=== PATIENT | male | born 1960 | race Caucasian/White ===

== ENCOUNTER 2017-11-15 17:14 | Inpatient (IN) | payer OTHER ==
[~2017-11-15] VITALS: Ht 177.8 cm; Wt 106.6 kg
--- NOTE | ~2017-11-15 | PROC ---
[facility] [address] [place] [address] PROCEDURE REPORT Name: JAMIE MONET Room: [address] IN .R.#: [id number] Admission: 11/15/17 Attend Phys: Vivi Tracey MD Discharge: Date of : 60 Report #: [id number] THIS REPORT FOR: //name// For GI report, please see the Provation report in Peceptive 7 content. By: [address] [place], [place] [address]cal Records Staff [facility] /STEFANO
[2017-11-15 17:27] VITALS: BP 125/81
[2017-11-15] MEDS ORDERED: HYDROCHLOROTH12.5 M1 PO (17:32)
[2017-11-15] MEDS ORDERED: LISINOPRIL20 MG PO (17:32)
[2017-11-15] MEDS ORDERED: MOBIC15 MG PO (17:32)
[2017-11-15] MEDS ORDERED: METHOTREXATE 22.5 MG PO (17:32)
[2017-11-15] MEDS ORDERED: NEURONTIN 300300 M1 PO (17:33)
[2017-11-15] MEDS ORDERED: GLUCOPHAGE XR500 MG PO (17:33)
[2017-11-15] MEDS ORDERED: FLEXERIL PO (17:33)
[2017-11-15] MEDS ORDERED: PROTONIX40 M1 PO (17:33)
[2017-11-15] MEDS ORDERED: NOVOLOG100 UNIT/1 SUBQ (17:34)
[2017-11-15] MEDS ORDERED: HYDROCODON-ACE1 EAC5 PO (17:34)
[2017-11-15] MEDS ORDERED: SIMVASTATIN40 MG PO (17:34)
[2017-11-15] MEDS ORDERED: LOPRESSOR50 PO (17:35)
[2017-11-15] MEDS ORDERED: PRESERVISION T1 EACH PO (17:35)
[2017-11-15] MEDS ORDERED: LANTUS100 UNIT/M SUBQ (17:35)
[2017-11-15] MEDS ORDERED: POTASSIUM20 PO (17:36)
[2017-11-15] MEDS ORDERED: HUMALOG100 UNIT/1 SUBQ (17:36)
[2017-11-15 18:38] LABS: HEMOGLOBIN 11.6 gm/dL (14.0-18.0); MPV 11.2 fl. (7.2-11.1); NUCLEATED RBCS 0 /100WBC
[2017-11-15 18:39] LABS: HEMATOCRIT 33.3 % (42.0-52.0); MCH 32.3 pg (26.0-34.0); MCHC 34.9 g/dL (28.0-37.0); MCV 92.6 fL (80.0-100.0); PLATELET COUNT* 252 thou/uL (150-400); RDW-CV 16.9 % (10.5-14.5); WBC 10.8 thou/uL (4.0-11.0)
[2017-11-15 18:44] LABS: URINE BLOOD TRACE (Negative); URINE CLARITY CLEAR; URINE COLOR DARK YELLOW; URINE GLUCOSE-RANDOM 1+ (Negative); URINE KETONES TRACE (Negative); URINE LEUKOCYTES-REFLEX 1+ (Negative); URINE NITRITE-REFLEX NEGATIVE (Negative); URINE PROTEIN 1+ (Negative); URINE SPECIFIC GRAVITY 1.025 (1.005-1.030)
[2017-11-15 18:44] LABS: CALCIUM 7.8 mg/dL (8.5-10.1); CREATININE 1.1 mg/dL (0.6-1.3); INR 1.2; POTASSIUM 3.4 mmol/L (3.5-5.1); PROTIME 11.6 Seconds (9.20-11.50)
[2017-11-15 18:51] LABS: MUCUS 0-3 Light strn/LPF (None Seen); SQUAMOUS 4-10 Moderate /LPF (0-3)
[2017-11-15 18:52] LABS: AMORPHOUS URATES Few /LPF (None Seen); BACTERIA-REFLEX 1-9 Few /HPF (None Seen); HYALINE CASTS 0-3 Few /LPF (None Seen); URINE RBC 0-2 Rare /HPF (0-2); URINE WBC-REFLEX 0-5 Rare /HPF (0-5)
[2017-11-15 18:53] LABS: URINE BILIRUBIN 3+ (Negative)
[2017-11-15 18:54] LABS: TOTAL BILIRUBIN 14.6 mg/dL (<0.1-1.0); TOTAL PROTEIN 6.7 g/dL (6.4-8.2)
[2017-11-15 19:06] LABS: ABSOLUTE BASOPHILS 0.2 thou/uL (0.0-0.2); ABSOLUTE EOSINOPHILS 0.2 thou/uL (0.0-0.7); ABSOLUTE LYMPHOCYTES 1.7 thou/uL (0.8-5.3); ABSOLUTE MONOCYTES 0.2 thou/uL (0.0-1.2); ABSOLUTE NEUTROPHILS 8.4 thou/uL (1.6-8.1); ATYPICAL LYMPHS 1 %
[2017-11-15 19:07] LABS: GIANT PLATELETS OCCASIONAL; PLATELET ESTIMATE ADEQUATE
[2017-11-15 21:58] VITALS: BP 131/81
[2017-11-16 07:20] LABS: HEMOGLOBIN 10.6 gm/dL (14.0-18.0); NUCLEATED RBCS 0 /100WBC; PLATELET COUNT* 218 thou/uL (150-400); RBC 3.36 mil/uL (4.50-6.00)
[2017-11-16 07:22] LABS: HEMATOCRIT 31.4 % (42.0-52.0); MCH 31.6 pg (26.0-34.0); MCHC 33.9 g/dL (28.0-37.0); MCV 93.4 fL (80.0-100.0); RDW-CV 16.6 % (10.5-14.5)
[2017-11-16 07:24] LABS: ALBUMIN 1.9 g/dL (3.4-5.0); CREATININE 0.9 mg/dL (0.6-1.3); POTASSIUM 3.8 mmol/L (3.5-5.1); TOTAL BILIRUBIN 13.2 mg/dL (<0.1-1.0); TOTAL PROTEIN 5.4 g/dL (6.4-8.2)
[2017-11-16 08:35] LABS: ABSOLUTE BASOPHILS 0.1 thou/uL (0.0-0.2); ABSOLUTE EOSINOPHILS 0.2 thou/uL (0.0-0.7); ABSOLUTE LYMPHOCYTES 1.1 thou/uL (0.8-5.3); ABSOLUTE MONOCYTES 0.1 thou/uL (0.0-1.2); ABSOLUTE NEUTROPHILS 7.6 thou/uL (1.6-8.1); PLATELET ESTIMATE ADEQUATE
[2017-11-16 08:36] LABS: ANISOCYTOSIS 1+; TARGET CELLS Occasional
[2017-11-16 08:45] VITALS: BP 135/71
[2017-11-16 15:32] VITALS: BP 127/77
[2017-11-16 20:00] VITALS: BP 117/72
[2017-11-17 03:47] VITALS: BP 117/71
[2017-11-17 03:48] LABS: HEMATOCRIT 29.4 % (42.0-52.0); HEMOGLOBIN 10.2 gm/dL (14.0-18.0); MCHC 34.8 g/dL (28.0-37.0); MPV 11.5 fl. (7.2-11.1); RBC 3.2 mil/uL (4.50-6.00); RDW-CV 17.2 % (10.5-14.5); WBC 9.8 thou/uL (4.0-11.0)
[2017-11-17 04:08] LABS: ALBUMIN 1.7 g/dL (3.4-5.0); CALCIUM 7.2 mg/dL (8.5-10.1); CREATININE 0.8 mg/dL (0.6-1.3); POTASSIUM 3.4 mmol/L (3.5-5.1); TOTAL BILIRUBIN 12.5 mg/dL (<0.1-1.0); TOTAL PROTEIN 5.8 g/dL (6.4-8.2)
[2017-11-17 04:36] LABS: MAGNESIUM 0.7 mg/dL (1.8-2.4)
[2017-11-17 15:52] VITALS: BP 115/69
[2017-11-17 20:00] VITALS: BP 129/78
[2017-11-17 23:45] VITALS: BP 123/70
[2017-11-18 03:57] LABS: HEMATOCRIT 31.1 % (42.0-52.0); HEMOGLOBIN 10.4 gm/dL (14.0-18.0); MCH 31.4 pg (26.0-34.0); MCHC 33.5 g/dL (28.0-37.0); MCV 93.5 fL (80.0-100.0); MPV 10.7 fl. (7.2-11.1); RBC 3.33 mil/uL (4.50-6.00); RDW-CV 17.1 % (10.5-14.5); WBC 11.4 thou/uL (4.0-11.0)
[2017-11-18 04:13] LABS: ALBUMIN 1.8 g/dL (3.4-5.0); CALCIUM 7.3 mg/dL (8.5-10.1); CREATININE 0.9 mg/dL (0.6-1.3); POTASSIUM 3.5 mmol/L (3.5-5.1); TOTAL BILIRUBIN 13.5 mg/dL (<0.1-1.0)
[2017-11-18 07:50] VITALS: BP 118/72
[2017-11-18 16:00] VITALS: BP 120/70
[2017-11-18 21:05] VITALS: BP 110/66
[2017-11-19 00:15] VITALS: BP 115/74
[2017-11-19 04:19] LABS: HEMATOCRIT 29.6 % (42.0-52.0); MCH 31.7 pg (26.0-34.0); MCV 93.3 fL (80.0-100.0); MPV 10.8 fl. (7.2-11.1); RBC 3.17 mil/uL (4.50-6.00)
[2017-11-19 04:34] LABS: ALBUMIN 1.7 g/dL (3.4-5.0); CREATININE 0.9 mg/dL (0.6-1.3); POTASSIUM 3.8 mmol/L (3.5-5.1); TOTAL BILIRUBIN 12.4 mg/dL (<0.1-1.0); TOTAL PROTEIN 5.9 g/dL (6.4-8.2)
[2017-11-19 07:06] LABS: HEPATITIS B SURFACE AG Negative (Negative)
[2017-11-19 07:06] LABS: HEPATITIS B SURFACE AG Negative (Negative)
[2017-11-19 08:30] VITALS: BP 121/62
[2017-11-19 10:31] VITALS: BP 121/62
[2017-11-19 11:33] VITALS: BP 121/62
[2017-11-19 14:25] VITALS: BP 116/80
[2017-11-19 20:40] VITALS: BP 134/86
[2017-11-20] VITALS (21 sets, daily range): BP systolic 101–177; BP diastolic 57–92
[2017-11-20] MEDS ORDERED: PROPRANOLOL 1010 MG PO (08:11)
--- NOTE | 2017-11-22 13:09 | CON ---
[address] [address] CONSULTATION Name: TIERNEYEDINSONJAMIE Ronaldo Room: [address] IN .R.#: [id number] Admission: 11/15/17 Attend Phys: Vivi Tracey MD Discharge: 11/20/17 Date of : 60 Report #: [id number] THIS REPORT FOR: //name// CC: Vivi Boo DATE OF SERVICE: 11/16/2017 REASON FOR CONSULT: Elevated liver enzymes and hyperbilirubinemia. HISTORY OF PRESENT ILLNESS: This is a 57-year-old male with a 6-day history of jaundice, who also complains of weakness, abdominal pain and poor appetite. The patient denies ever having any history of liver disease in the past. He has had upper and lower endoscopy 6 years ago, which were unrevealing. He reports that his stool is usually loose, but denies any hematochezia or melena. PAST MEDICAL HISTORY: Significant for a history of hypertension, diabetes, gastroesophageal reflux disease, hyperlipidemia, chronic neck pain, rheumatoid arthritis and neuropathy. ALLERGIES: SIGNIFICANT TO MORPHINE. MEDICATIONS: Please refer to MAR. SOCIAL HISTORY: The patient is , obese. Smokes a pack of cigarettes per day. Denies alcohol use on regular basis. PHYSICAL EXAMINATION: VITAL SIGNS: Reveals blood pressure of 131/81, respirations 16, pulse 90 and temperature 98.1. LUNGS: Clear to auscultation. CARDIOVASCULAR: Regular. LUNGS: Clear. ABDOMEN: Soft, mildly distended. Bowel sounds are positive. NEUROLOGIC: Alert and oriented x 3. LABORATORY DATA: Labs reveal sodium of 137, potassium 3.8, BUN is 19, creatinine 0.9 and glucose 101. AST is 120, ALT 92, alkaline phosphatase 781 and total bilirubin is 13.2. Lipase 126. INR is 1.2 with WBC of 9.0 and hemoglobin of 10.6 with platelet of 218,000. IMAGING: CT of abdomen and pelvis and ultrasound were both obtained on admission. CT is suggestive of nodular liver contour, which may signify cirrhosis. There is also trace ascites without splenomegaly. There is a 1.6-cm low-attenuation lesion in the right hepatic lobe. Ultrasound confirms the finding in the CT. There are gallstones noted. The [place] [address] CONSULTATION Name: JAMIE MONET Room: [address]#: [id number] Admission: 11/15/17 Attend Phys: Vivi Tracey MD Discharge: 11/20/17 Date of : 60 Report #: [id number] 3.4 mm. ASSESSMENT AND PLAN: The patient with abdominal pain, elevated liver enzymes and hyperbilirubinemia. He does not have coagulopathy or thrombocytopenia, which are usually associated with cirrhosis, but his AST-ALT ratio hints cirrhotic liver. Imaging also confirms cirrhosis. MRI of the abdomen is ordered, so we will follow up with this results. We also have ordered serology, which includes viral hepatitis serology and autoimmune serology. We will make further recommendation once these are available. <ELECTRONICALLY SIGNED> By: Kavya Cruz MD 11/22/17 1309 1034 1310Kavya Cruz MD /nt
== END 2017-11-20 18:00 | disposition home or self-care (01) | DRG 441 ==
LOC: M.ERS 17:14 → M.TBA-ER 21:14 → M.ORTHSURG 21:14
PROVIDERS: Emergency Medicine Emergency Medical Services; Nurse Practitioner Family; ADMIT Internal Medicine
PROC: 0DJ08ZZ Inspection of Upper Intestinal Tract, Via Natural or Artificial Opening Endoscopic (ICD-10-PCS; principal; 2017-11-19)
PROC: 0FB13ZX Excision of Right Lobe Liver, Percutaneous Approach, Diagnostic (ICD-10-PCS; 2017-11-20)
DX: K72.00 Acute and subacute hepatic failure without coma (principal); R65.11 Systemic inflammatory response syndrome (SIRS) of non-infectious origin with acute organ dysfunction; E44.0 Moderate protein-calorie malnutrition; K76.6 Portal hypertension; I85.10 Secondary esophageal varices without bleeding; K44.9 Diaphragmatic hernia without obstruction or gangrene; K31.89 Other diseases of stomach and duodenum; K76.9 Liver disease, unspecified; E11.9 Type 2 diabetes mellitus without complications; F17.210 Nicotine dependence, cigarettes, uncomplicated; M06.9 Rheumatoid arthritis, unspecified; I10 Essential (primary) hypertension; G62.9 Polyneuropathy, unspecified; K21.9 Gastro-esophageal reflux disease without esophagitis; E66.01 Morbid (severe) obesity due to excess calories; E78.00 Pure hypercholesterolemia, unspecified; Z68.33 Body mass index [BMI] 33.0-33.9, adult; Z79.4 Long term (current) use of insulin; Z79.84 Long term (current) use of oral hypoglycemic drugs; Z79.899 Other long term (current) drug therapy; Z88.5 Allergy status to narcotic agent

== ENCOUNTER → 2017-12-30 | Outpatient (CLI) | payer OTHER ==
[~2017-12-30] MED LIST: ALDACTONE50 MG PO; BRILINTA90 MG PO; CLONIDINE0.1 PO; CONSTULOSE10 GM/152 PO; FLEXERIL PO; GLUCOPHAGE XR500 MG PO; HUMALOG100 UNIT/1 SUBQ; HYDROCHLOROTH12.5 M1 PO; HYDROCODON-ACE1 EAC5 PO; LANTUS100 UNIT/M SUBQ; LASIX 40 MG TAB40 M2 PO; LISINOPRIL20 MG PO; LOPRESSOR50 PO; METHOTREXATE 22.5 MG PO; MIDODRINE HCL 55 M1 PO; MOBIC15 MG PO; NEURONTIN 300300 M1 PO; NOVOLOG100 UNIT/1 SUBQ; ONDANSETRON HCL4 M2 PO; OXYCONTIN10 M1 PO; POTASSIUM20 PO; PRESERVISION T1 EACH PO; PROPRANOLOL 1010 MG PO; PROTONIX40 M1 PO; SIMVASTATIN40 MG PO
== END | disposition home or self-care (01) ==
LOC: M.ULTRA 12:45
DX: R18.8 Other ascites (principal); K72.90 Hepatic failure, unspecified without coma; I10 Essential (primary) hypertension; E11.9 Type 2 diabetes mellitus without complications; M06.9 Rheumatoid arthritis, unspecified; K21.9 Gastro-esophageal reflux disease without esophagitis; E78.00 Pure hypercholesterolemia, unspecified; F17.210 Nicotine dependence, cigarettes, uncomplicated; Z79.4 Long term (current) use of insulin; Z79.899 Other long term (current) drug therapy; Z88.8 Allergy status to other drugs, medicaments and biological substances; Z98.890 Other specified postprocedural states

== ENCOUNTER 2018-04-18 20:08 | Inpatient (IN) | payer OTHER ==
[~2018-04-18] VITALS: Ht 177.8 cm; Wt 105.7 kg
[~2018-04-18 20:08] MED LIST changes: -ALDACTONE50 MG PO; -BRILINTA90 MG PO; -CLONIDINE0.1 PO; -CONSTULOSE10 GM/152 PO; -LASIX 40 MG TAB40 M2 PO; -MIDODRINE HCL 55 M1 PO; -ONDANSETRON HCL4 M2 PO; -OXYCONTIN10 M1 PO
[2018-04-18 20:17] VITALS: BP 114/63
[2018-04-18] MEDS ORDERED: LASIX 40 MG TAB40 M2 PO (20:26)
[2018-04-18] MEDS ORDERED: CONSTULOSE10 GM/152 PO (20:28)
[2018-04-18] MEDS ORDERED: ALDACTONE50 MG PO (20:28)
[2018-04-18] MEDS ORDERED: ONDANSETRON HCL4 M2 PO (20:29)
[2018-04-18] MEDS ORDERED: CLONIDINE0.1 PO (20:29)
[2018-04-18] MEDS ORDERED: OXYCONTIN10 M1 PO (20:29)
[2018-04-18] MEDS ORDERED: PROTONIX40 M1 PO (20:30)
[2018-04-18 20:46] LABS: HEMATOCRIT 27.4 % (42.0-52.0); HEMOGLOBIN 8.6 gm/dL (14.0-18.0); MCH 25.1 pg (26.0-34.0); MCHC 31.5 g/dL (28.0-37.0); MCV 79.7 fL (80.0-100.0); MPV 8.4 fl. (7.2-11.1); NUCLEATED RBCS 0 /100WBC; PLATELET COUNT* 334 thou/uL (150-400); RBC 3.44 mil/uL (4.50-6.00); RDW-CV 19.9 % (10.5-14.5); WBC 9.4 thou/uL (4.0-11.0)
[2018-04-18 20:52] LABS: INR 1.1; PROTIME 11.4 Seconds (9.20-11.50)
[2018-04-18 21:02] LABS: ABSOLUTE BASOPHILS 0.3 thou/uL (0.0-0.2); ABSOLUTE EOSINOPHILS 0.1 thou/uL (0.0-0.7); ABSOLUTE LYMPHOCYTES 0.8 thou/uL (0.8-5.3); ABSOLUTE MONOCYTES 0.3 thou/uL (0.0-1.2); PLATELET ESTIMATE ADEQUATE
[2018-04-18 21:03] LABS: ANISOCYTOSIS 1+; HYPOCHROMASIA 1+; MICROCYTES 1+
[2018-04-18 21:08] LABS: ICTOTEST (BILI CONFIRMATORY) Negative (Negative); URINE BILIRUBIN 1+ (Negative); URINE BLOOD NEGATIVE (Negative); URINE CLARITY CLEAR; URINE COLOR DARK YELLOW; URINE GLUCOSE-RANDOM 1+ (Negative); URINE KETONES NEGATIVE (Negative); URINE LEUKOCYTES-REFLEX NEGATIVE (Negative); URINE NITRITE-REFLEX NEGATIVE (Negative); URINE PROTEIN TRACE (Negative); URINE SPECIFIC GRAVITY >= 1.030 (1.005-1.030)
[2018-04-18 21:20] LABS: CALCIUM 8.6 mg/dL (8.5-10.1); CREATININE 1.1 mg/dL (0.6-1.3); POTASSIUM 3.8 mmol/L (3.5-5.1)
[2018-04-18 21:31] LABS: ALBUMIN 2.4 g/dL (3.4-5.0); TOTAL BILIRUBIN 0.8 mg/dL (<0.1-1.0); TOTAL PROTEIN 6.5 g/dL (6.4-8.2)
[2018-04-18 21:33] LABS: TROPONIN-I LEVEL 21.16 ng/mL (<0.06)
[2018-04-19] VITALS (55 sets, daily range): BP systolic 74–125; BP diastolic 42–83
--- NOTE | 2018-04-19 02:29 | NUR ---
PT ADMITTED TO ROOM 4 FROM ER. PT MOVED SELF TO HOSPITAL BED. MONITORS APPLIED, SCDS APPLIED. HISTORY OBTAINED. VSS, NO ACUTE DISTRESS NOTED. PT NOTED TO HAVE LABORED RESP AND DISTENDED FIRM ABD. EDEMA NOTED IN FEET AND LEGS 2+. PT ORIENTED TO ROOM, CALL SYSTEM TV AND BED CONTROLS. PT VERBALIZED GOOD UNDERSTANDING. IN FOR BRIEF VISIT. VISITATION POLICY WENT OVER WITH AND PT. BECAME ANGRY SHE WANTED TO SLEEP IN HIS ROOM WHILE HE WAS HERE. DID RETURN TO WAITING ROOM AFTER EXPLAINING VISITATION AGAIN. PT DOES NOT WANT PAIN MEDS AT THIS TIME, INSTRUCTED TO LET ME KNOW WHEN HE NEEDED MEDICATION AND PT VEBALIZED UNDERSTANDING.O2 2L BNC INTACT.
[2018-04-19 04:31] LABS: HEMATOCRIT 26.8 % (42.0-52.0); HEMOGLOBIN 8.4 gm/dL (14.0-18.0); MCH 24.6 pg (26.0-34.0); MCHC 31.4 g/dL (28.0-37.0); MCV 78.6 fL (80.0-100.0); MPV 8.5 fl. (7.2-11.1); RBC 3.41 mil/uL (4.50-6.00); RDW-CV 19.9 % (10.5-14.5); WBC 10.4 thou/uL (4.0-11.0)
[2018-04-19 06:10] LABS: ALBUMIN 2.2 g/dL (3.4-5.0); CALCIUM 8.2 mg/dL (8.5-10.1); CREATININE 1.1 mg/dL (0.6-1.3); POTASSIUM 3.7 mmol/L (3.5-5.1); TOTAL BILIRUBIN 0.7 mg/dL (<0.1-1.0); TOTAL PROTEIN 5.9 g/dL (6.4-8.2)
--- NOTE | 2018-04-19 11:54 | NUR ---
PATIENT GETTING PARACENTESIS AT THIS TIME AT THE BEDSIDE.
--- NOTE | 2018-04-19 11:55 | EKG ---
[place] [address] ELECTROCARDIOGRAM REPORT Name: JAMIE MONET JR Room: [address] ADM IN M.R.#: [id number] Admission: 04/18/18 Attend Phys: Champ Giraldo MD Discharge: Date of : 60 Report #: [id number] THIS REPORT FOR: //name// [facility] ED Test Date: 2018-04-18 Test Time: 20:48:39 Pat Name: JAMIE MONET Department: Room: [facility] Gender: M Flag Maker: JEFF : 1960 Requested By: Lita Swanson Order Number: [id number] MD: Mundo Kaur Measurements Intervals [place] Rate: 109 P: 39 WA: 135 QRS: 34 QRSD: 108 T: 43 QT: 333 QTc: 449 Interpretive Statements Sinus tachycardia Borderline low voltage, extremity leads Abnormal R-wave progression, early transition Baseline wander in lead(s) V6 No previous ECG available for comparison Electronically Signed On 04-19-2018 11:55:41 CDT by Mundo Kaur [email or web address] <ELECTRONICALLY SIGNED> By: Mundo Kaur MD, FACC 04/19/18 1155 47 47 Mundo Kaur MD, FAC /EPI
--- NOTE | 2018-04-19 11:56 | EKG ---
[place] [address] ELECTROCARDIOGRAM REPORT Name: JAMIE MONET Room: [address] ADM IN M.R.#: [id number] Admission: 04/18/18 Attend Phys: Champ Giraldo MD Discharge: Date of : 60 Report #: [id number] THIS REPORT FOR: //name// [facility] Test Date: 2018-04-19 Test Time: 09:35:43 Pat Name: JAMIE MONET Department: Room: [address] Gender: M Customer Support Specialist: WEST : 1960 Requested By: Mundo Kaur Order Number: [id number] Reading MD: Mundo Kaur Measurements Intervals [place] Rate: 109 P: 36 RI: 142 QRS: 29 QRSD: 98 T: 45 QT: 344 QTc: 464 Interpretive Statements Sinus tachycardia Abnormal R-wave progression, early transition No previous ECG available for comparison Electronically Signed On 04-19-2018 11:56:02 CDT by Mundo Kaur [email or web address] <ELECTRONICALLY SIGNED> By: Mundo Kaur MD, [facility] 04/19/18 1156 0935 0935 Mundo Kaur MD, [facility] /EPI
--- NOTE | 2018-04-19 11:56 | EKG ---
[place] [address] ELECTROCARDIOGRAM REPORT Name: JAMIE MONET Room: [address] ADM IN M.R.#: [id number] Admission: 04/18/18 Attend Phys: Champ Giraldo MD Discharge: Date of : 60 Report #: [id number] THIS REPORT FOR: //name// [facility] ED Test Date: 2018-04-19 Test Time: 00:38:52 Pat Name: JAMIE MONET Department: Room: [address] Gender: M Contract Negotiation Manager: : 1960 Requested By: Lita Swanson Order Number: [id number] MD: Mundo Kaur Measurements Intervals [place] Rate: 117 P: 42 OK: 148 QRS: 35 QRSD: 116 T: 60 QT: 346 QTc: 483 Interpretive Statements Sinus tachycardia Nonspecific intraventricular conduction delay Borderline low voltage, extremity leads Abnormal lateral Q waves No previous ECG available for comparison Electronically Signed On 04-19-2018 11:55:58 CDT by Mundo Kaur [email or web address] <ELECTRONICALLY SIGNED> By: Mundo Kaur MD, FAC 04/19/18 1155 0038 0038 Mundo Kaur MD, [facility] /EPI
[2018-04-19 14:51] LABS: BF RBC <1000 /mm3; TOTAL CELL COUNT 105 /mm3
--- NOTE | 2018-04-19 15:10 | NUR ---
PATIENT HAD PARACENTESIS AND REMOVED 12,000MLS OF FLUID FROM BELLY.
[2018-04-19 16:22] LABS: BF LYMPHOCYTES 37 %; BF MONOCYTES 56 %; BF POLYS 7 %; BF TISSUE 17 /100 WBC
[2018-04-19 16:23] LABS: CLARITY CLEAR; COLOR YELLOW; TOTAL VOLUME 126600 ml
--- NOTE | 2018-04-19 16:26 | NUR ---
CENTRAL LINE INSERTION DONE BY DR SANTIAGO. OK TO USE PER DR SANTIAGO. RIGHT JUGULAR
[2018-04-19 16:50] LABS: SOURCE ABDOMINAL
--- NOTE | 2018-04-19 18:31 | NUR ---
PATIENT IS SOMEWHAT PROGRESSING WELL TOWARDS GOALS. HAD PARACENTESIS TODAY, CENTRAL LINE PLACED AT BEDSIDE, PRESSURES SOFT. ALBUMIN WAS GIVEN 2X BUT DID NOT HELP PRESSURES. DR FISHER WOULD LIKE SYSTOLIC TO BE GREATER THAN 100, LEVOPHED QUAD STRENGTH STARTED. CATH PLANNED FOR SATURDAY. AT BEDSIDE, EDUCATED ON ICU RULES AND UPDATED ON PLAN OF CARE. UPSET THAT SHE CANNOT SLEEP AT BEDSIDE AND INAPPROPRIATELY LAUGHS. CALL LIGHT IN REACH, DIRECTOR MORTGAGE IN PLACE, PATIENT USING URINAL TO VOID. DENIES PAIN, NAUSEA OR SHORTNESS OF AIR.
--- NOTE | 2018-04-19 20:00 | NUR ---
2129 ASSUMED CARE OF PT. PLEASE SEE DOCUMENTED ASSESSMENT. PT IS AXOX4. O2 AT 2L PER NC. LEVO GTT CURRENTLY AT 14 MCG/MIN. PT C/O 9/10 PRESSURE, ACHING, INTERMITTENT PAIN IN RIGHT LOWER ABDOMEN. PT GIVEN IV FENTANYL FOR PAIN MANAGEMENT. GOALS THIS SHIFT ARE: WEAN DOWN LEVO GTT BUT KEEP SBP>100, REST, PAIN MANAGEMENT, AND DIABETES EDUCATION.
[2018-04-20] VITALS (31 sets, daily range): BP systolic 80–125; BP diastolic 26–80
[2018-04-20 05:19] LABS: ABSOLUTE BASOPHILS 0.1 thou/uL (0.0-0.2); ABSOLUTE EOSINOPHILS 0.1 thou/uL (0.0-0.7); ABSOLUTE LYMPHOCYTES 1.1 thou/uL (0.8-5.3); ABSOLUTE NEUTROPHILS 8.1 thou/uL (1.6-8.1); BASOPHILS 1.1 %; EOSINOPHILS 1.3 %; HEMATOCRIT 24.3 % (42.0-52.0); HEMOGLOBIN 7.6 gm/dL (14.0-18.0); LYMPHOCYTES 10.3 %; MCH 24.6 pg (26.0-34.0); MCHC 31.4 g/dL (28.0-37.0); MCV 78.1 fL (80.0-100.0); MONOCYTES 9.6 %; MPV 9.3 fl. (7.2-11.1); NUCLEATED RBCS 0 /100WBC; PLATELET COUNT* 297 thou/uL (150-400); POLYS 77.7 %; RBC 3.11 mil/uL (4.50-6.00); RDW-CV 19.7 % (10.5-14.5); WBC 10.4 thou/uL (4.0-11.0)
[2018-04-20 06:02] LABS: CALCIUM 8.2 mg/dL (8.5-10.1); MAGNESIUM 1.5 mg/dL (1.8-2.4); POTASSIUM 3.1 mmol/L (3.5-5.1)
[2018-04-20 06:37] LABS: PREALBUMIN 8.2 mg/dL (18.0-35.7)
--- NOTE | 2018-04-20 07:00 | NUR ---
OUTCOME SUMMARY: NO REAL PROGRESSION TOWARDS GOALS. UNABLE TO TITRATE LEVO GTT DOWN. LEVO GTT CURRENTLY AT 20 MCG/MIN. ADEQUATE UOP. GOOD REST. K LOW THIS AM, TO BE REPLACED BY DAY SHIFT. PT AND WILL NEED MUCH EDUCATION RE: DM TYPE 2, AND DIFFERENCE BETWEEN SHORT VS. LONG ACTING INSULIN. OVERALL PROGNOSIS: FAIR.
--- NOTE | 2018-04-20 11:38 | EKG ---
[place] [address] ELECTROCARDIOGRAM REPORT Name: JAMIE MONET JR Room: [address] ADM IN M.R.#: [id number] Admission: 04/18/18 Attend Phys: Champ Giraldo MD Discharge: Date of : 60 Report #: [id number] THIS REPORT FOR: //name// [facility] Test Date: 2018-04-20 Test Time: 10:46:48 Pat Name: JAMIE MONET Department: Room: [address] Gender: M Insurance Sales Assistant: WEST : 1960 Requested By: Mundo Kaur Order Number: [id number] Reading MD: Mundo Kaur Measurements Intervals [place] Rate: 100 P: 29 AL: 150 QRS: 34 QRSD: 107 T: 65 QT: 385 QTc: 497 Interpretive Statements Sinus tachycardia Borderline low voltage, extremity leads Abnormal R-wave progression, early transition Borderline prolonged QT interval Compared to ECG 04/19/2018 09:35:43 No significant changes Electronically Signed On 04-20-2018 11:38:15 CDT by Mundo Kaur [email or web address] <ELECTRONICALLY SIGNED> By: Mundo Kaur MD, FACC 04/20/18 1138 1046 1046 Mundo Kaur MD, FAC /EPI
[2018-04-20 14:14] LABS: SOURCE ABDOMINAL
[2018-04-20 21:59] LABS: MAGNESIUM 1.3 mg/dL (1.8-2.4); POTASSIUM 3.8 mmol/L (3.5-5.1)
[2018-04-21] VITALS (18 sets, daily range): BP systolic 83–109; BP diastolic 45–77
--- NOTE | 2018-04-21 01:57 | NUR ---
ASSUMED PT CARE AT 1930. ASSESSMENT COMPLETED CHARTED. ABLE TO MAKE NEEDS KNOWN, TURNS SELF IN BED, USES URINAL NEEDED. PT FAMILY MEMBER HAS BEEN OUT IN THE WAITING ROOM SINCE 10PM, STATES SHE IS NOT LEAVING THE PT ALONE, NEVER HAS IN ALL THE YEARS THEY HAVE BEEN . PT HAS BEEN NPO SINCE MIDNIGHT FOR CATH AND ABDOMINAL PARACENTESIS. PT C/O PAIN IN ABDOMIN, CHEST, AND BACK ALL TOTALLING AROUND A 8/10 AND IS GETTING PRN PAIN MEDICATION PER P.O. CONSENTS TO BE SIGNED IN THE MORNING, PT AWARE OF PROCEDURES HAPPENING TOMORROW. WILL CONTINUE TO MONITOR.
[2018-04-21 03:54] LABS: ABSOLUTE BASOPHILS 0.1 thou/uL (0.0-0.2); ABSOLUTE EOSINOPHILS 0.2 thou/uL (0.0-0.7); ABSOLUTE LYMPHOCYTES 1.1 thou/uL (0.8-5.3); ABSOLUTE MONOCYTES 0.8 thou/uL (0.0-1.2); ABSOLUTE NEUTROPHILS 4.9 thou/uL (1.6-8.1); BASOPHILS 1.5 %; EOSINOPHILS 2.2 %; HEMOGLOBIN 7.4 gm/dL (14.0-18.0); MCH 24.8 pg (26.0-34.0); MCHC 31.9 g/dL (28.0-37.0); MCV 77.8 fL (80.0-100.0); MONOCYTES 10.8 %; MPV 9.1 fl. (7.2-11.1); NUCLEATED RBCS 0 /100WBC; PLATELET COUNT* 237 thou/uL (150-400); POLYS 70.5 %; RBC 2.96 mil/uL (4.50-6.00); RDW-CV 19.9 % (10.5-14.5)
[2018-04-21 04:09] LABS: INR 1.2; PROTIME 11.8 Seconds (9.20-11.50)
[2018-04-21 04:10] LABS: ALBUMIN 2.2 g/dL (3.4-5.0); CALCIUM 7.8 mg/dL (8.5-10.1); CREATININE 0.9 mg/dL (0.6-1.3); POTASSIUM 3.8 mmol/L (3.5-5.1); TOTAL BILIRUBIN 0.7 mg/dL (<0.1-1.0)
--- NOTE | 2018-04-21 11:15 | NUR ---
PT GONE FOR CARDIAC CATH, WILL ASSESS AT LATER TIME.
[2018-04-21 14:10] LABS: BODY FLUID LDH 57 IU/L (())
--- NOTE | 2018-04-21 14:58 | EKG ---
[place] [address] ELECTROCARDIOGRAM REPORT Name: JAMIE MONET JR Room: [address] ADM IN M.R.#: [id number] Admission: 04/18/18 Attend Phys: Champ Giraldo MD Discharge: Date of : 60 Report #: [id number] THIS REPORT FOR: //name// [facility] Test Date: 2018-04-21 Test Time: 14:01:19 Pat Name: JAMIE MONET Department: Room: [address] Gender: M Java Tech: : 1960 Requested By: Nhan Bear Order Number: [id number] Reading MD: Nhan Bear Measurements Intervals [place] Rate: 91 P: 47 WI: 150 QRS: 42 QRSD: 111 T: 60 QT: 417 QTc: 514 Interpretive Statements Sinus rhythm Borderline low voltage, extremity leads Abnormal R-wave progression, early transition Probable lateral infarct, old Prolonged QT interval Compared to ECG 04/20/2018 10:46:48 Sinus tachycardia no longer present Electronically Signed On 04-21-2018 14:57:48 CDT by Nhan Bear [email or web address] <ELECTRONICALLY SIGNED> By: Nhan Bear MD, FAC 04/21/18 1457 1401 1401 Nhan Bear MD, [facility] /EPI
--- NOTE | 2018-04-21 15:24 | NUR ---
PT TO CARDIAC BLOW OFF WORKER AT 1100 AND BACK TO ROOM AT 1300. RADSTAT IN PLACE. 1 UNIT PRBC FINISHED WHEN BLOW OFF WORKER NURSES BROUGHT PATIENT BACK. PT IS DROWSY BUT EASILY AROUSABLE TO VOICE. NO REPORTS OF PAIN AT THIS TIME. BP IS MAINTAINING WITH MAPS >60. WILL CONTINUE TO MONITOR.
--- NOTE | 2018-04-21 16:00 | 2DMMODE ---
[place] [address] 2 D/M-MODE ECHOCARDIOGRAM Name: JAMIE MONET JR Room: [address] ADM IN .R.#: [id number] Admission: 04/18/18 Attend Phys: Champ Giraldo, Discharge: Date of : 60 Date of Service: 04/21/18 1600 Report #: [id number] THIS REPORT FOR: //name// APPROVED REPORT Study performed: 04/21/2018 13:26:44 EXAM: Comprehensive 2D, Doppler, and color-flow Echocardiogram Patient Location: Bedside BSA: 2.23 HR: 109 bpm BP: 87/45 mmHg Other Information Study Quality: Fair Indications Non STEMI Dyspnea 2D Dimensions IVSd: 10.75 (7-11mm) LVOT Diam: 20.79 (18-24mm) LVDd: 44.80 mm PWd: 9.50 (7-11mm) Ascending Ao: 24.89 (22-36mm) LVDs: 27.85 (25-40mm) Aortic Root: 31.94 mm Volumes Left Atrial Volume (Systole) LA ESV Index: 12.20 mL/m2 Aortic Valve AoV Peak Kenny.: 1.16 m/s AO Peak Gr.: 5.41 mmHg LVOT Max P.84 mmHg AO Mean Gr.: 3.06 mmHg LVOT Mean P.51 mmHg LVOT Max V: 0.84 m/s AO V2 VTI: 20.41 cm LVOT Mean V: 0.57 m/s SANJAY (VTI): 2.36 cm2 LVOT V1 VTI: 14.20 cm Mitral Valve E/A Ratio: 0.89 MV Decel. Time: 190.62 ms MV E Max Kenny.: 0.74 m/s MV PHT: 55.28 [place] [address] 2 D/M-MODE ECHOCARDIOGRAM Name: JAMIE MONET Room: [address] IN ..#: [id number] Admission: 04/18/18 Attend Phys: Champ Giraldo, Discharge: Date of : 60 Date of Service: 04/21/18 1600 Report #: [id number] MVA (PHT): 3.98 cm2 TDI E/Lateral E': 7.40 E/Medial E': 9.25 Medial E' Kenny.: 0.08 m/s Lateral E' Kenny.: 0.10 m/s Pulmonary Valve PV Peak Kenny.: 1.11 m/s PV Peak Gr.: 4.97 mmHg Left Ventricle The left ventricle is normal size. There is normal left ventricular wall thickness. Left ventricular systolic function is normal. The left ventricular ejection fraction is within the normal range. LVEF is 60-65%. Grade I - abnormal relaxation pattern. Right Ventricle The right ventricle is normal size. The right ventricular systolic function is normal. Atria The left atrium size is normal. The right atrium size is normal. Aortic Valve The aortic valve is normal in structure. No aortic regurgitation is present. There is no aortic valvular stenosis. Mitral Valve The mitral valve is normal in structure. There is no mitral valve regurgitation noted. No evidence of mitral valve stenosis. Tricuspid Valve The tricuspid valve is normal in structure. There is no tricuspid valve regurgitation noted. Pulmonic Valve Pulmonic valve is not well visualized. There is no pulmonic valvular regurgitation. Great Vessels The aortic root is normal in size. IVC is not visualized. Pericardium There [place] [address] 2 D/M-MODE ECHOCARDIOGRAM Name: JAMIE MONET Room: [address] IN [facility]#: [id number] Admission: 04/18/18 Attend Phys: Champ Giraldo, Discharge: Date of : 60 Date of Service: 04/21/18 1600 Report #: [id number] <Conclusion> LVEF is 60-65%. <ELECTRONICALLY SIGNED> By: Nhan Bear MD, [facility] 04/21/181599 99 99 Nhan Bear MD, FAC /INF
--- NOTE | 2018-04-21 16:12 | CARD ---
[address] [address] CARDIAC CATH REPORT Name: JAMIE MONET JR Room: [address] IN [facility]#: [id number] Admission: 04/18/18 Attend Phys: Champ Giraldo MD Discharge: Date of : 60 Report #: [id number] THIS REPORT FOR: //name// APPROVED REPORT Study performed: 04/21/2018 10:41:21 Patient Details Patient Status: In-Patient Room #: ICU 4 The patient is a 57 year-old male Event Personnel Dr. Nhan Bear MD, Hydrodynamics Professor; Mary Ellen El, RT, Monitor; Rosana Farris, SADIQ Monitor; BAILEY Sams, Scrub; Brooke Call RN Cosmetician Apprentice Procedures Performed Left Heart Cath w/wo Coronaries, BMS placement to Proximal RCA x 2. One BMS placed in OM3 Indication Non-STEMI , Dyspnea, Chest pain Risk Factors Hypercholesterolemia, Tobacco History () Procedure Narrative The patient was brought electively to the Cardiac Catheterization Laboratory and was prepped and draped in a sterile manner. The right wrist was infiltrated with 1% Lidocaine subcutaneous anesthesia. A 6 fr sheath was inserted into the right radial artery. Coronary angiography was performed using coronary diagnostic catheters. The right coronary system was accessed and visualized with a Diagnostic catheter. The left coronary system was accessed and visualized with a Diagnostic catheter. Left ventricular/Aortic Valve gradient assessed via catheter pullback. Closure device was deployed with a 6 Fr vascband. The patient tolerated the procedure well and there were no complications associated with the procedure. There was no hematoma. Intraoperative Conscious Sedation Sedation start time: 11:37 Case end Time: 13:37 [place] [address] CARDIAC CATH REPORT Name: JAMIE MONET JR Room: [address] IN [facility]#: [id number] Admission: 04/18/18 Attend Phys: Champ Giraldo MD Discharge: Date of : 60 Report #: [id number] The patient's coronary anatomy is co- dominant. Diagnostic Cath Left Main 0% stenosis LAD 30% proximal and 60% mid stenosis OM3 90% proximal stenosis Right Coronary 70% proximal and 90% mid stenosis RPLV 90% mid stenosis Left Ventriculography Left Ventriculography was not performed. Hemodynamics The aortic pressure is 80/50 mmHg with a mean of 58 mmHg. The left ventricular pressure is 78/1 mmHg with a mean of 9 mmHg. The left ventricular end diastolic pressure is 8 mmHg. There was no gradient across the aortic valve upon pullback. Pullback from the left ventricle to the aorta revealed no gradient across the aortic valve. PCI Technique Lesion Anticoagulation was achieved with Heparin. Patient was preloaded with Plavix. Percutaneous coronary intervention was performed on the proximal right coronary artery. The lesion stenosis prior to intervention was 90% with CARLA 3 flow. A 6 fr jcr 4 Guide Catheter was used to engage the rca ostium. A bmw Interventional Guidewire was used to cross the lesion. BALLOON DILATION A Balloon catheter 2.5 x 8 mm was inserted and inflated up to 22atm for 10seconds. Repeat angiography revealed the following post-dilatation results: 70% stenosis. Small dissection noted at site of ptca. Balloon was noted to puncture with high pressure balloon inflation. Unable to advance stent to area of stenosis because of difficulty predilating lesion. Repeat predilatation performed with a 3.0 x 12 mm noncompliant balloon to 20 edwige. STENT DEPLOYMENT A bare metal stent 3.0 x 23 was inserted and inflated up to 14atm for 10seconds. Repeat angiography revealed the following post-stent deployment results: samll distal edge dissection. Second bare metal 2.75 x 8 mm stent placed distal to stent with minimal overlap with proximal stent. Final angiography reveals 0 % stenosis with [place] [address] [place] [address] CARDIAC CATH REPORT Name: JAMIE MONET Room: [address] IN [facility].#: [id number] Admission: 04/18/18 Attend Phys: Champ Giraldo MD Discharge: Date of : 60 Report #: [id number] PCI Technique Lesion 2 Percutaneous Coronary Intervention was performed on the third obtuse marginal branch segment. Patient was preloaded with Plavix. Percutaneous coronary intervention was performed on the third obtuse marginal branch segment. The lesion stenosis prior to intervention was 90% with CARLA 3 flow. A xb3.0 Guide Catheter was used to engage the lm ostium. A bmw Interventional Guidewire was used to cross the lesion. Balloon Dilation A Balloon catheter 2.5 x 8 mm was inserted and inflated up to 6atm for 10seconds. Repeat angiography revealed the following post-dilatation results: 40% stenosis. Second BMW guidewire placed into distal circumflex to protect distal circumflex. Stent Deployment A bare metal stent 2.25 x 12 mm was inserted and inflated up to 8atm for 15seconds. Repeat angiography revealed the following post-stent deployment results: 0% stenosis. Post Stent Deployment Balloon Dilation Narrowing noted of distal circumflex beyond 3rd marginal branch suggestive of plaque shift during stent deployment. Pt given 150 cc IC Nitro. Final angiography reveals 0 % stenosis with CARLA 3 flow. Comments Residual narrowing in distal circumflex beyond takeoff of 3rd marginal branch appeared minimal with good flow, therefore PTCA of the distal circumflex was not performed. Conclusion 1. 60% stenosis noted of mid lad, and 90% stenosis noted of proximal portion of the 3rd marginal branch of the circumflex 2. 90% stenosis noted of mid rca, and 90% stenosis noted of distal posterolateral branch 3. successful placement of 2 bare metal stents in the proximal rca 4. successful placement of 1 bare metal stent in the 3rd marginal branch of [place] [address] CARDIAC CATH REPORT Name: JAMIE MONET JR Room: [address] IN [facility]#: [id number] Admission: 04/18/18 Attend Phys: Champ Giraldo MD Discharge: Date of : 60 Report #: [id number] Cardiac Rehabilitation Referral Agg[facility] Medical Therapy <ELECTRONICALLY SIGNED> By: Nhan Bear MD, FACRosa M 04/21/18 1612 1612 1612Dflorentin Bear MD, RICKY /INF
[2018-04-21 17:44] LABS: HEMATOCRIT 27.9 % (42.0-52.0); HEMOGLOBIN 8.9 gm/dL (14.0-18.0)
--- NOTE | 2018-04-21 19:45 | NUR ---
PATIENT ASSESSMENT CHARTED. VSS. LEVOPHED DRIP OFF THROUGHOUT THE DAY EXCEPT DURING CARDIAC CATH. 1X DOSE OF ALBUMIN AND 1 UNIT PRBC GIVEN. PAIN MINIMAL THROUGHOUT SHIFT. PT TOLERATING FOOD POST CATH WITHOUT DIFFICULTY. RIGHT RADIAL SITE LOOKS CLEAN, DRY AND INTACT. RADSTAT REMOVED AT 1900 AND GUAZE WITH TEGADERM APPLIED.
[2018-04-22] VITALS (11 sets, daily range): BP systolic 82–100; BP diastolic 45–65
[2018-04-22 03:44] LABS: ABSOLUTE BASOPHILS 0.1 thou/uL (0.0-0.2); ABSOLUTE EOSINOPHILS 0.1 thou/uL (0.0-0.7); ABSOLUTE LYMPHOCYTES 0.9 thou/uL (0.8-5.3); ABSOLUTE MONOCYTES 0.7 thou/uL (0.0-1.2); ABSOLUTE NEUTROPHILS 5.4 thou/uL (1.6-8.1); BASOPHILS 0.9 %; EOSINOPHILS 1.6 %; HEMATOCRIT 24.8 % (42.0-52.0); HEMOGLOBIN 8.2 gm/dL (14.0-18.0); LYMPHOCYTES 12.5 %; MCH 25.9 pg (26.0-34.0); MCHC 33.2 g/dL (28.0-37.0); MPV 9.3 fl. (7.2-11.1); NUCLEATED RBCS 0 /100WBC; PLATELET COUNT* 239 thou/uL (150-400); RBC 3.18 mil/uL (4.50-6.00); RDW-CV 19.5 % (10.5-14.5); WBC 7.2 thou/uL (4.0-11.0)
[2018-04-22 04:04] LABS: ALBUMIN 2.6 g/dL (3.4-5.0); ALKALINE PHOSPHATASE 166 U/L (46-116); ANION GAP 5 mmol/L (7-16); BUN 11 mg/dL (7-18); CALCIUM 7.7 mg/dL (8.5-10.1); CHLORIDE 98 mmol/L (98-107); CO2 27 mmol/L (21-32); CREATININE 0.9 mg/dL (0.6-1.3); GLUCOSE 174 mg/dL (70-99); POTASSIUM 3.6 mmol/L (3.5-5.1); SGOT 32 U/L (15-37); SGPT 15 U/L (30-65); SODIUM 130 mmol/L (136-145); TOTAL BILIRUBIN 0.8 mg/dL (<0.1-1.0); TOTAL PROTEIN 5.6 g/dL (6.4-8.2)
[2018-04-22 04:12] LABS: TROPONIN-I LEVEL 4.43 ng/mL (<0.06)
[2018-04-22 04:29] LABS: CHOLESTEROL 88 mg/dL (<200); HDL CHOLESTEROL 20 mg/dL (>40); LDL CHOLESTEROL 55 mg/dL (<100); SERUM ASSESSMENT Clear; TC:HDL 4.4 Ratio (Not establshd); TRIGLYCERIDE 68 mg/dL (<150); VLDL 14 mg/dL (<40)
--- NOTE | 2018-04-22 06:56 | NUR ---
PT AAOX4 RESP REG AND UNLABORED SKIN W/DNO ACUTE DISRESS NOTED. PT DENIES SOB AND CHEST PAIN. RIGHT WIRST SITE DRESSING CDI. NO HEMATOMA NOTED. PT STATEDHE WAS FEELING MUCH BETTER. SPLITTING MACHINE OPERATOR INTACT WITH ALARMSSET. VSS AND NO ACUT ECHANGES DURING SHIFT, WILL CONTINUE TO MONITOR
--- NOTE | 2018-04-22 11:05 | NUR ---
SPOKE WITH PT AND IN ROOM. PT SAID HE IS FEELING BETTER AFTER THE TWO PARACENTESIS THAT HE HAS HAD, 'THEY TOOK OFF A LOT OF FLUID AND I FEEL MORE COMFORTABLE NOW.' PT LIVES WITH , STATES HE HAS BEEN ACTIVE AND INDEP AND DENIES ANY DISCHARGE NEEDS. PT IS HOPING HE CAN MOVE OUT OF ICU TODAY, 'I WANT TO GET UP AND MOVE AROUND MORE.' DISCUSSED ROLE OF CASE MGT, WILL CONTINUE TO FOLLOW.
--- NOTE | 2018-04-22 11:56 | EKG ---
[place] [address] ELECTROCARDIOGRAM REPORT Name: JAMIE MONET JR Room: [address] ADM IN M.R.#: [id number] Admission: 04/18/18 Attend Phys: Champ Giraldo MD Discharge: Date of : 60 Report #: [id number] THIS REPORT FOR: //name// [facility] Test Date: 2018-04-22 Test Time: 08:16:49 Pat Name: JAMIE MONET Department: Room: [address] Gender: M Lighting Equipment Operator: : 1960 Requested By: Nhan Bear Order Number: [id number] Reading MD: Mundo Kaur Measurements Intervals [place] Rate: 99 P: 38 WA: 142 QRS: 14 QRSD: 111 T: 39 QT: 387 QTc: 497 Interpretive Statements Sinus rhythm Ventricular premature complex Borderline low voltage, extremity leads Abnormal R-wave progression, early transition Abnormal lateral Q waves Compared to ECG 04/21/2018 14:01:19 Ventricular premature complex(es) now present Q waves now present Myocardial infarct finding no longer present Prolonged QT interval no longer present Electronically Signed On 04-22-2018 11:56:02 CDT by Mundo Kaur [email or web address] <ELECTRONICALLY SIGNED> By: Mundo Kaur MD, FACC 04/22/18 1156 5 5 Mundo Kaur MD, FACC /EPI
--- NOTE | 2018-04-22 13:20 | NUR ---
PATIENT UP IN CHAIR. DENIES CP OR SOA. ALERT WANTING OUT OF ICU.
--- NOTE | 2018-04-22 18:56 | NUR ---
PATIENT TRANSFERED TO ROOM 233. PATIENT REPORTING NO PAIN, NAUSEA OR SHORTNESS OF BRETH. BED IN LOW AND LOCKED POSITION. CALL LIGHT WITHIN REACH. AT BEDSIDE. CARDIAC MONTIOR TRACKING SR. ON ROOM AIR. IV SALINE LOCKED. WILL CONTINUE TO MONITOR.
[2018-04-23 00:59] VITALS: BP 101/59
[2018-04-23 04:55] VITALS: BP 100/64
[2018-04-23 05:35] LABS: ABSOLUTE BASOPHILS 0.1 thou/uL (0.0-0.2); ABSOLUTE EOSINOPHILS 0.2 thou/uL (0.0-0.7); ABSOLUTE LYMPHOCYTES 0.8 thou/uL (0.8-5.3); ABSOLUTE MONOCYTES 0.8 thou/uL (0.0-1.2); ABSOLUTE NEUTROPHILS 4.9 thou/uL (1.6-8.1); BASOPHILS 1.2 %; EOSINOPHILS 2.5 %; HEMATOCRIT 26.6 % (42.0-52.0); HEMOGLOBIN 8.6 gm/dL (14.0-18.0); LYMPHOCYTES 11.7 %; MCH 25.6 pg (26.0-34.0); MCHC 32.4 g/dL (28.0-37.0); MCV 79.1 fL (80.0-100.0); MONOCYTES 12.1 %; MPV 9.5 fl. (7.2-11.1); NUCLEATED RBCS 0 /100WBC; PLATELET COUNT* 237 thou/uL (150-400); POLYS 72.5 %; RBC 3.36 mil/uL (4.50-6.00); RDW-CV 19.6 % (10.5-14.5); WBC 6.7 thou/uL (4.0-11.0)
[2018-04-23 06:01] LABS: ALBUMIN 2.8 g/dL (3.4-5.0); CREATININE 0.8 mg/dL (0.6-1.3); POTASSIUM 3.7 mmol/L (3.5-5.1); TOTAL BILIRUBIN 0.8 mg/dL (<0.1-1.0); TOTAL PROTEIN 5.8 g/dL (6.4-8.2)
[2018-04-23 06:28] LABS: PREALBUMIN 7.9 mg/dL (18.0-35.7)
--- NOTE | 2018-04-23 07:55 | NUR ---
PATIENT RESTING IN BED WITH AT BEDSIDE. UP AD MERARI IN ROOM. DENIES NEEDS. REPORT GIVEN TO ONCOMING NURSE.
[2018-04-23 08:15] VITALS: BP 100/63
[2018-04-23 11:00] VITALS: BP 107/68
--- NOTE | 2018-04-23 14:57 | NUR ---
CONTINUE TO FOLLOW, MET [facility] PT AND . WAS ASKED BY DR HUBBARD TO GIVE ED AND DISCUSS CIRRHOSIS. WRITTEN INFO GIVEN AND DISCUSSED WITH PT NEED TO TALK WITH RIO HURST ON ROUNDS ABOUT HIS RECOMMENDATIONS. PT AND STATED THEY WOULD, ALSO ASKED SADIQ PEREZ TO CHECK WITH RIO TENTATIVE DC IS TOMORROW. PT THEN VOICED THAT THEY HAVE BEEN LIVING IN A MOTEL AT THE [facility] AND NOT SURE WHERE [place] GO AT [place]. THEY HAVE FAMILY IN TOWN BUT NOT SURE THEY COULD STAY WITH THEM. GAVE THEM RESOURCES FOR EXTENDED MOTELS IN [facility] AND HOUSING AUTHORITY FOR [place], [facility] AND [place]. 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 PT STATED THEY WOULD HAVE A PLACE TO GO. WILL FOLLOW
[2018-04-23 15:48] VITALS: BP 97/59
[2018-04-23 16:05] LABS: SOURCE ABDOMINAL
--- NOTE | 2018-04-23 18:35 | NUR ---
ASSESSMENT COMPLETED REFER REID COMPUTER CHARTING. REVENUE INSPECTOR TRACKING ST. PATIENT RESTING IN BED REPORTING NO NAUSEA OR SHORTNESS OF BREATH. PATIENT GIVEN FENTANYL FOR PAIN. ON ROOM AIR. IV SALINE LOCKED. WILL CONTINUE TO MONITOR THIS SHIFT.
[2018-04-23 20:58] VITALS: BP 104/66
[2018-04-24] VITALS (14 sets, daily range): BP systolic 83–123; BP diastolic 52–78
--- NOTE | 2018-04-24 04:49 | NUR ---
PT RESTING IN BED. REMAINS ON RA. AM LABS DRAWN, PENDING RESULT AND REVIEW. PT POSSIBLE D/C HOME TODAY. REQUIRED ONE DOSE OF PAIN MEDICATION THROUGHOUT SHIFT.
--- NOTE | 2018-04-24 09:00 | NUR ---
REC'D REPORT FROM NOC RN, ASSUMED CARE AT 0730. PT A & O X4, ABLE TO COMMUNICATE NEEDS TO STAFF. DIRECTOR ENTERPRISE SALES IN PLACE, ST, 103. O2 SAT >92% ON RA. PAIN IN R ARM AND NECK 6/10 PER NUMERIC SCALE, PT STATES HE TOLERATES 7/10 PAIN EVERY DAY AND DOES NOT WANT PAIN MEDICATION. PT REFUSING TO USE NONSKID SOCKS AFTER REINFORCING EDUCATION ABOUT FALL RISK. CALL LIGHT WITHIN REACH. BED LOW, LOCKED. PT'S IN ROOM.
--- NOTE | 2018-04-24 09:14 | PATH ---
[address] [address] PATHOLOGY RPT PROCEDURE Name: JAMIE MONET JR Room: [address] IN [facility]#: [id number] Admission: 04/18/18 Date of : 60 Discharge: Report #: [id number] Path Case #: [id number] Note LCA Accession Number: [id number] TESTS RESULT FLAG UNITS REF RANGE LAB Clinician Provided Cytology Information No. of containers..01 Other (Miscellaneous) Source: ASCITES DIAGNOSIS: 02 ASCITES NEGATIVE FOR MALIGNANT CELLS. SCANT CELLULARITY WITH FEW INFLAMMATORY CELLS PRESENT. THIS INTERPRETATION INCLUDES EVALUATION OF A CELL BLOCK. Signed out by: 02 Jass Bhat MD, Pathologist NPI- [id number] Performed by: 01 Christ Castle, Dinkey Dispatcher ([facility]) Gross description: 01 22ML, YELLOW, CLEAR /LCS FLAG LEGEND: L-Low Normal,H-High Normal,LL-Alert Low,HH-Alert High <-Panic Low,>-Panic High,A-Abnormal,AA-Critical Abnormal Performed at: [address] [place] [address] Tu Chavez MD, [address] [place] [address] [facility], [place] [address] Jass Bhat MD, Specimen Comment: A courtesy copy of this report has been sent to Specimen Comment: [phone]. Specimen Comment: Report sent to Performed at: [address] [place] [address] [address], [place], [place] [id number] MD Tu Chavez MD Phone: [phone]
--- NOTE | 2018-04-24 13:35 | NUR ---
ENTERED PT'S ROOM AT 1240. PT C/O PAIN IN R CHEST, R ARM, AND L ARM. PT STATES PAIN IS 10/10 PER NUMERICAL PAIN SCALE. PT STATES HE HAS VOMITED THE LAST TWO TIMES THAT HE HAS BEEN GIVEN FENTANYL. FENTANYL NOT GIVEN AT THIS TIME. PT STATES HE VOMITED AT APPROX 1215. PT DID NOT EAT ANYTHING FROM LUNCH TRAY. STAT EKG OBTAINED. VS OBTAINED. CALLED DR. HUBBARD WITH EKG CHANGES, DR. HUBBARD ORDERED STAT TROPONIN AND STAT CARDIOLOGY CONSULT CARDIOLOGY HAD PREVIOUSLY SIGNED OFF. MANDIE, CARDIOLOGY CONTROL SYSTEMS SPECIALIST, TO BS FOR ASSESSMENT. PLAN IS TO TAKE PATIENT EMERGENTLY TO IT PROGRAMMER PT LEFT UNIT VIA HOSPITAL BED WITH IT PROGRAMMER STAFF/NURSING ADOBE LAYER TO IT PROGRAMMER AT 1330.
--- NOTE | 2018-04-24 16:15 | NUR ---
RECEIVED REPORT FROM ELECTRONICS ENGINEERING TECHNICIAN NURSE. PT HAD A STEMI AND ONE STENT PLACED. WENT THROUGH RADIAL. PT DENIES CHEST PAIN. PT ON 2 PRESSORS AT THIS TIME. WILL CONTINUE TO MONITOR.
[2018-04-24 16:20] LABS: CALCIUM 8.7 mg/dL (8.5-10.1)
[2018-04-24 16:43] LABS: HEMATOCRIT 31.5 % (42.0-52.0); HEMOGLOBIN 9.9 gm/dL (14.0-18.0); MCH 25.1 pg (26.0-34.0); MCHC 31.5 g/dL (28.0-37.0); MCV 79.7 fL (80.0-100.0); MPV 9.5 fl. (7.2-11.1); NUCLEATED RBCS 0 /100WBC; RBC 3.95 mil/uL (4.50-6.00); RDW-CV 19.8 % (10.5-14.5); WBC 10.8 thou/uL (4.0-11.0)
[2018-04-24 16:54] LABS: PLATELET COUNT* 437 thou/uL (150-400)
[2018-04-24 17:14] LABS: ABSOLUTE BASOPHILS 0.1 thou/uL (0.0-0.2); ABSOLUTE LYMPHOCYTES 1.7 thou/uL (0.8-5.3); ABSOLUTE MONOCYTES 0.3 thou/uL (0.0-1.2); ABSOLUTE NEUTROPHILS 8.6 thou/uL (1.6-8.1)
[2018-04-24 17:17] LABS: ANISOCYTOSIS 1+; HYPOCHROMASIA 1+; PLATELET ESTIMATE INCREASED
--- NOTE | 2018-04-24 18:13 | EKG ---
[place] [address] ELECTROCARDIOGRAM REPORT Name: JAMIE MONET JR Room: [address] ADM IN M.R.#: [id number] Admission: 04/18/18 Attend Phys: Champ Giraldo MD Discharge: Date of : 60 Report #: [id number] THIS REPORT FOR: //name// [facility] Test Date: 2018-04-24 Test Time: 12:56:02 Pat Name: JAMIE MONET Department: Room: [facility] Gender: M Product Development Technician: : 1960 Requested By: Champ Giraldo Order Number: [id number] Reading MD: Matt Graham Measurements Intervals [place] Rate: 96 P: 35 SC: 152 QRS: 48 QRSD: 109 T: 100 QT: 370 QTc: 468 Interpretive Statements Sinus rhythm Borderline low voltage, extremity leads Nonspecific repol abnormality, lateral leads ST elevation, consider inferior injury Compared to ECG 04/22/2018 08:16:49 Early repolarization now present ST (T wave) deviation now present Myocardial infarct finding now present Ventricular premature complex(es) no longer present Q waves no longer present Electronically Signed On 04-24-2018 18:13:01 CDT by Matt Graham [email or web address] <ELECTRONICALLY SIGNED> By: Matt Graham MD, FACC 04/24/18 1813 1256 1256 Matt Graham MD, FACC /EPI
--- NOTE | 2018-04-24 18:29 | CARD ---
[address] [address] CARDIAC CATH REPORT Name: JAMIE MONET JR Room: [address] IN [facility]#: [id number] Admission: 04/18/18 Attend Phys: Champ Giraldo MD Discharge: Date of : 60 Report #: [id number] THIS REPORT FOR: //name// APPROVED REPORT Study performed: 04/24/2018 13:25:53 Patient Details Patient Status: In-Patient Room #: 233 The patient is a 57 year-old male Event Personnel Jeovanny Sams Hintermaier, Elena RN (R) Ventilation Mechanic, Nhan Bear Requirements Engineer, Mirna Rodas Monitor Procedures Performed Art Access - R radial artery Left Heart Cath w/or w/o Coronaries [id number] [facility] , Selective Right and Left Coronary Angiography, PTCA with Stenting Indication Abnormal ECG, STEMI , Chest pain Risk Factors Dysplipidemia , Coronary Artery Disease, Diabetes Previous Procedures/Diagnoses Previous PCI Admission/Lab Medications/Medications given during procedure Glycoprotein IllbIlla Inhibitors, Heparin Unfract. Procedure Narrative The patient was brought urgently to the Cardiac Catheterization Laboratory and was prepped and draped in a sterile manner. The right wrist was infiltrated with 2% Lidocaine subcutaneous anesthesia. A Slender Glidesheath sheath was inserted into the right radial artery. Coronary angiography was performed using coronary diagnostic catheters. The right coronary system was accessed and visualized with a 6fr JR 4 catheter. The left coronary system was accessed and visualized with a 6fr JL 4 catheter. The left ventricle was accessed and visualized with a 6fr pigtail catheter. Left ventricular/Aortic Valve gradient assessed via catheter pullback. Left ventriculogram was performed in BUCKLEY projection. Closure device was deployed with a [address] [place] [address] CARDIAC CATH REPORT Name: JAMIE MONET JR Room: [address]#: [id number] Admission: 04/18/18 Attend Phys: Champ Giraldo MD Discharge: Date of : 60 Report #: [id number] Fr Vasc Band. The patient tolerated the procedure well and there were no complications associated with the procedure. There was no hematoma. Intraoperative Conscious Sedation Sedation start time: 13:43 Case end Time: 14:31 NO Sedation Given Fluoro Time: 8.7 minutes Dose: DAP 37195 cGycm2 1433.84 mGy Contrast Type and Amount: Omnipaque 215 ml Coronary Angiography The patient's coronary anatomy is co- dominant. Diagnostic Cath Left Main 0% stenosis LAD 60% mid stenosis OM3 stent 0% stenosis Right Coronary proximal stent acutely occluded RPLV 90% stenosis Left Ventriculography The left ventricular ejection fraction is estimated to be 45-50%. Left ventricular wall motion abnormalities are present. There is 1+ mitral insufficiency. moderate lateral hypokinesis noted Hemodynamics The aortic pressure is 70/40 mmHg with a mean of mmHg. The left ventricular pressure is 69/4 mmHg with a mean of mmHg. The left ventricular end diastolic pressure is 4 mmHg. There was no gradient across the aortic valve upon pullback. Pullback from the left ventricle to the aorta revealed no gradient across the aortic valve. Persistant hypotension noted. The patient was started on IV dopamine and neosynephrine PCI Technique Lesion Anticoagulation was achieved with Heparin. Percutaneous coronary intervention was performed on the mid right coronary artery. The lesion stenosis prior to intervention was 100% with CARLA 0 flow. A 6FR JCR 4 100CM Guide Catheter was used to engage the RCA ostium. A IG: BMW 190cm Interventional Guidewire was used to cross the [place] [address] CARDIAC CATH REPORT Name: JAMIE MONET JR Room: [address]#: [id number] Admission: 04/18/18 Attend Phys: Champ Giraldo MD Discharge: Date of : 60 Report #: [id number] A Balloon catheter Trek RX 2.5 X 8 was inserted and inflated up to 18.00atm for 10seconds. Repeat angiography revealed the following post-dilatation results: 70% stenosis. Additional Inflation: 18.00atm for 7seconds. Additional Inflation: 18.00atm for 8seconds. 3.0 x 15 mm balloon inserted into the area of narrowing and additional inflations performed. Distal stent edge narrowing persisted. Decision was mad to place an additional stent at the distal edge of the recently placed stents STENT DEPLOYMENT A bare metal stent 3.0 x 12 mm was inserted and inflated up to 14atm for 15seconds. Repeat angiography revealed the following post-stent deployment results: 0% stenosis. Final angiography reveals 0 % stenosis with CARLA 3 flow. BALLOON DILATION A Balloon catheter was inserted and inflated up to 11.00atm for 33seconds. Additional Inflation: 18.00atm for 23seconds. Additional Inflation: 20.00atm for 16seconds. 22 DEMARCUS X 14 Seconds STENT DEPLOYMENT A bare metal stent Vision RX 3.0 X 12 was inserted and inflated up to 22.00atm for 14seconds. Additional Inflation: 12.00atm for 24seconds. Additional Inflation: 12.00atm for 11seconds. Conclusion 1. acute occlusion of a recently place stent in the RCA 2. successful placement of an additional bare metal stent in the RCA 3. suspect the patient is a nonresponder to plavix Recommendations Smoking Cessation Cardiac Rehabilitation Referral Aggressive Medical Therapy Medications Administered Ticagrelor <ELECTRONICALLY SIGNED> By: Nhan Bear MD, [facility] 04/24/181827 27 27Dajamie Bear MD, FACC /INF
[2018-04-25] VITALS (11 sets, daily range): BP systolic 94–116; BP diastolic 50–71
[2018-04-25 05:18] LABS: ABSOLUTE BASOPHILS 0.1 thou/uL (0.0-0.2); ABSOLUTE EOSINOPHILS 0.1 thou/uL (0.0-0.7); ABSOLUTE LYMPHOCYTES 0.8 thou/uL (0.8-5.3); ABSOLUTE MONOCYTES 1.2 thou/uL (0.0-1.2); ABSOLUTE NEUTROPHILS 8.1 thou/uL (1.6-8.1); BASOPHILS 1.1 %; EOSINOPHILS 0.5 %; HEMATOCRIT 26.7 % (42.0-52.0); HEMOGLOBIN 8.5 gm/dL (14.0-18.0); MCH 25.2 pg (26.0-34.0); MCHC 32.1 g/dL (28.0-37.0); MCV 78.5 fL (80.0-100.0); MONOCYTES 11.8 %; MPV 9.1 fl. (7.2-11.1); NUCLEATED RBCS 0 /100WBC; POLYS 78.6 %; RDW-CV 19.9 % (10.5-14.5); WBC 10.4 thou/uL (4.0-11.0)
[2018-04-25 05:24] LABS: PLATELET COUNT* 311 thou/uL (150-400)
[2018-04-25 05:35] LABS: CALCIUM 8.7 mg/dL (8.5-10.1); CREATININE 0.9 mg/dL (0.6-1.3); POTASSIUM 4.1 mmol/L (3.5-5.1)
[2018-04-25 05:48] LABS: TROPONIN-I LEVEL 9.33 ng/mL (<0.06)
--- NOTE | 2018-04-25 06:34 | NUR ---
ASSUMED OF PT AT 1900 PT ALERT AND ORIENTED X4 VS AND ASSESSAMENT STABLE CONTINUES ON DOPAMINE GTT TITATING NEEDED. PT DENIED ANY CP. R RADIAL CATH INCISION SITE CDI WITH ANY HEMATOMA BLEEDING OR DRAINAGE.2+ PULSES AND CMS WNL PT RUNNING ST ON THE MONITOR. PT REQUESTED MAYES CATH BE REMOVED OBTAINED ORDER AND D/C'D AT 0500. CRITICAL HIGH TROP DOCUMENTED EXPECTED RESULT DUE TO NSTEMI AND CARDIAC CATH 04/24. WILL CONTINUE PLAN OF CARE.
--- NOTE | 2018-04-25 10:23 | EKG ---
[place] [address] ELECTROCARDIOGRAM REPORT Name: JAMIE MONET JR Room: [address] ADM IN M.R.#: [id number] Admission: 04/18/18 Attend Phys: Champ Giraldo MD Discharge: Date of : 60 Report #: [id number] THIS REPORT FOR: //name// [facility] Test Date: 2018-04-25 Test Time: 08:23:10 Pat Name: JAMIE MONET Department: Room: [address] Gender: M Wireless Sales Expert: INTERNATIONAL TRADE SPECIALIST : 1960 Requested By: Nhan Bear Order Number: [id number] Keiko MD: Nhan Bear Measurements Intervals [place] Rate: 110 P: 48 IN: 149 QRS: 8 QRSD: 99 T: 60 QT: 343 QTc: 465 Interpretive Statements Sinus tachycardia nonspecific t wave changes Borderline low voltage, extremity leads Abnormal R-wave progression, early transition Compared to ECG 04/24/2018 12:56:02 Sinus rhythm no longer present st elevation less prominent Electronically Signed On 04-25-2018 10:23:19 CDT by Nhan Bear [email or web address] <ELECTRONICALLY SIGNED> By: Nhan Bear MD, FACC 04/25/18 1023 2 2 Nhan Bear MD, [facility] /EPI
--- NOTE | 2018-04-25 13:11 | NUR ---
Nutrition: Pt admitted with SOB. Ascites, cirrhosis, steatohepatitis. Paracentesis done, was going to be discharged, then had TX. Now is transferred from ICU to room 209. RD seeing pt for LOS. Pt was eating 80-100%, per [employer]. CHO controlled diet. Wt: 233#. BG in low 200s, alb 2.8, prealb 9. On lasix. Altered nutrition-related lab values R/T liver FXN AEB labs above and cirrhosis. GOALS: continue good po intake, recommend MVI. Mild risk at this time.
--- NOTE | 2018-04-25 15:13 | CON ---
[address] [address] CONSULTATION Name: JAMIE MONET JR Room: [address] IN M.R.#: [id number] Admission: 04/18/18 Attend Phys: Champ Giraldo MD Discharge: Date of : 60 Report #: [id number] THIS REPORT FOR: //name// CC: Champ Boo DATE OF SERVICE: 04/19/2018 PRIMARY CARE PHYSICIAN: Dr. Jessica Boo. REASON FOR CONSULTATION: Acute myocardial infarction. HISTORY OF PRESENT ILLNESS: The patient is a 57-year-old man who presented with increasing abdominal girth over the last 3-5 days. He has a history of known ascites. During his workup, he had had some complaints of sharp chest pain and his cardiac troponin level came back abnormal at 21.09. Upon my arrival, his ECG demonstrates a sinus rhythm with nonspecific ST-segment changes, but on initial presentation there was very subtle anterior ST segment depression of less than 1 mm. Historically, the patient had been having off and on chest discomfort for the last month or two. He has numerous cardiovascular risk factors. He has no documented history of heart disease. He denies palpitations, heart racing, or skipping. He has a markedly distended abdomen and they were planning on performing a paracentesis today electively. He had a procedure in November where he has had a prolonged hospitalization, which included liver biopsy for ascites. PAST MEDICAL HISTORY: Significant for ascites with cirrhosis of his liver, possibly an atypical hemangioma. Ultimately a biopsy was performed, which according to the patient was negative for malignancy, though. He has hypertension. He has hyperlipidemia, previously been on a statin, but it has been discontinued in regards to his cirrhosis. He has type 2 diabetes mellitus. He had been on metformin at one point, but then this was also discontinued. He is not a drinker. There is not a record of alcoholic cirrhosis. He does have hypertension, but currently his blood pressure has been low. HOME MEDICATIONS: Include propranolol 10 mg p.o. b.i.d., Lasix 40 mg daily, insulin glargine 80 units daily. He had been on clonidine 0.1 mg p.o. t.i.d., Zofran and oxycodone p.r.n., Protonix 40 mg p.o. b.i.d. and lactulose 10 mg p.o. t.i.d. SOCIAL HISTORY: He is a current smoker. He is . He has a 45-[id number]-[id number] history of tobacco use. REVIEW OF SYSTEMS: GENERAL: No [place]vers[place] [address] CONSULTATION Name: JAMIE MONET JR Room: [address] IN ..#: [id number] Admission: 04/18/18 Attend Phys: Champ Giraldo MD Discharge: Date of : 60 Report #: [id number] CARDIOVASCULAR: Occasional chest discomfort, which occurs mostly at rest with occasional activity lasting from 5-15 minutes long, but they are always mild in severity. No palpitations. NEUROLOGIC: No syncope or seizures. HEMATOLOGIC: No history of anemia or bleeding disorders. RENAL: No history of kidney failure. ENDOCRINE: Positive diabetes. GASTROINTESTINAL: As above, positive ascites. GENITOURINARY: No dysuria, no hematuria. IMMUNE SYSTEM: He has no history of immunosuppression, but he does have a history of rheumatoid arthritis. PHYSICAL EXAMINATION: VITAL SIGNS: Blood pressure is 113/73, pulse is 109 in sinus tachycardia, O2 sat is 98% on 2 liters nasal cannula. GENERAL: This is a middle-aged male. He is a pleasant, resting comfortably. GASTROINTESTINAL: He has a markedly distended abdomen, severe tense ascites. CARDIOVASCULAR: Regular. I cannot hear a murmur or S3. LUNGS: Diminished breath sounds, but there are no rales. EXTREMITIES: Show 1-2+ pretibial edema and pedal edema. NEUROLOGIC: There are no focal deficits. PSYCHIATRIC: The patient has appropriate mood and affect. LABORATORY DATA: ECG as noted above. ECG on initial presentation showed some mild ST segment depression anterior. The morning ECG today shows resolution of this and a normal sinus rhythm. Sodium is 132, potassium is 3.7, chloride is 97, BUN is 12, creatinine is 1.1, GFR 69, AST is 120, ALT is 26, alkaline phosphatase 236. Troponin I is 21.09. IMAGING: Chest x-ray this hospitalization shows low lung volumes, compatible with linear opacity at the left costophrenic angle suggestive of atelectasis. There is no effusion. CT abdomen and pelvis, mural thickening and inflammation in the lower third of the duodenum, cirrhotic liver morphology with similar appearing 1.3 cm right hepatic lesion previously biopsied, findings compatible with portal hypertension including large volume ascites and pericellular to varices, coronary calcification, small left pleural effusion. IMPRESSION: 1. Non-ST elevation myocardial infarction. He presents with unstable angina and an elevated cardiac troponin level in the setting of severe ascites, with concern that this could be a recurrence of the previous ascites that required a paracentesis in November. We are asked to see him in preoperative evaluation for percutaneous drainage. I think that this can be done safely with the assistance of specialist Radiology or our GI colleagues. I would like to anticoagulate him with aspirin at bare minimum post-procedurally though, [address] [place] [address] CONSULTATION Name: JAMIE MONET Room: [address] IN .R.#: [id number] Admission: 04/18/18 Attend Phys: Champ Giraldo MD Discharge: Date of : 60 Report #: [id number] I think he should be evaluated with a diagnostic cardiac catheterization on Saturday, sooner should he develop any more angina symptoms. Currently, he is chest pain free. His ECG does not show any acute changes this morning. He has numerous cardiovascular risk factors. We will check an echocardiogram to assess his LV function. 2. Hypotension. We will need to monitor his blood pressure closely following paracentesis and put him on pressors as necessary p.r.n. I would use Levophed. 3. Ascites. He is followed by our GI colleagues. I do not have the full results of his liver biopsy. 4. Diabetes mellitus. I would continue with insulin protocol. <ELECTRONICALLY SIGNED> By: Mundo Kaur MD, [facility] 04/25/18 1513 1026 1530Mundo Kaur MD, FACC /nt
--- NOTE | 2018-04-25 18:30 | NUR ---
RECEIVED REPORT FROM WINSOME BABCOCK. ASSUMED CARE OF PT AROUND 0730 IN ICU. PT A&O X4, VSS. PILOT PLANT OPERATOR HELPER IN PLACE TRACING ST WITH NO CHANGES THIS SHIFT. AM ASSESSMENT AND VITALS COMPLETED CHARTED. RIGHT IJ TRIPLE LUMEN INTACT AND FLUSHES WELL, ALL PORTS ASPIRATE FOR BLOOD. PT TRANSFERED TO TELE FLOOR AROUND 1130, CONTINUED CARES. PT EATING AND DRINKING WITHOUT ISSUE, APPETITE POOR. UP USING URINAL TO VOID, OUTPUT GOOD. PT REPORTED LEG PAIN THIS AFTERNOON AND RECEIVED PO PAIN MEDICATION WITH PARTIAL RELIEF. AT BEDSIDE. PT HOPING TO DC TOMORROW. FALL PRECAUTIONS IN PLACE. CALL LIGHT WITHIN REACH. HOURLY ROUNDING PERFORMED.
[2018-04-26] VITALS: BP 84/76
[2018-04-26 04:00] VITALS: BP 100/47
[2018-04-26 05:02] LABS: ABSOLUTE BASOPHILS 0.1 thou/uL (0.0-0.2); ABSOLUTE EOSINOPHILS 0.2 thou/uL (0.0-0.7); ABSOLUTE LYMPHOCYTES 0.9 thou/uL (0.8-5.3); ABSOLUTE MONOCYTES 0.9 thou/uL (0.0-1.2); BASOPHILS 1.2 %; EOSINOPHILS 2.3 %; HEMATOCRIT 25.3 % (42.0-52.0); HEMOGLOBIN 8.2 gm/dL (14.0-18.0); LYMPHOCYTES 11.3 %; MCH 25.4 pg (26.0-34.0); MCHC 32.4 g/dL (28.0-37.0); MCV 78.5 fL (80.0-100.0); MONOCYTES 11.4 %; MPV 9.5 fl. (7.2-11.1); NUCLEATED RBCS 0 /100WBC; PLATELET COUNT* 279 thou/uL (150-400); POLYS 73.8 %; RBC 3.22 mil/uL (4.50-6.00); RDW-CV 20.1 % (10.5-14.5); WBC 8.1 thou/uL (4.0-11.0)
--- NOTE | 2018-04-26 05:28 | NUR ---
PT AAOX4 RESP REG AND UNLABORED SKIN E/D NO ACUTE DISTRESS NOTED. PT DENIES PAIN AND SOB. PT C/O ABDOMEN FEELING ITCHY.TELEMETRY PACK INTACT WITH ALARMS SET. AT BEDSIDE. PT STATES HE IS HOPING TO BE DCD TODAY. ABDOMEN IS SWOLLEN WITH ASCITED AND FIRM. PT SATES HE IS NOTE HAVING ANY TROUBLE BREATHING AT THIS TIME. VSS AND NO ACUTE CHANGES DURING SHIFT WILL CONITNUE TO MONITOR
[2018-04-26 05:38] LABS: ALBUMIN 3.4 g/dL (3.4-5.0); CALCIUM 8.3 mg/dL (8.5-10.1); CREATININE 0.9 mg/dL (0.6-1.3); POTASSIUM 3.9 mmol/L (3.5-5.1); TOTAL BILIRUBIN 0.8 mg/dL (<0.1-1.0); TOTAL PROTEIN 5.9 g/dL (6.4-8.2)
[2018-04-26 08:00] VITALS: BP 105/63
[2018-04-26 08:13] LABS: ANISOCYTOSIS 2+; HYPOCHROMASIA 1+
[2018-04-26 08:14] LABS: PLATELET ESTIMATE ADEQUATE
--- NOTE | 2018-04-26 10:08 | NUR ---
ASSUMED CARE OF PT THIS AM AROUND 07- PAINTER HAND IN PLACE ORDERED, TRACING ST- UPON ASSESSMENT PT NOTED TO BE RESTING IN BED, AT SIDE- PT A&O X4- CONTINENT OF BOWEL AND BLADDER- UP AD-MERARI IN ROOM, STEADY GAIT NOTED- LCTA, RESP EVEN AND UN-LABOORED- VSS, O2 SAT 97% ON RA- ABDOMEN FIRM/ROUND/DISTENDED, BS X4 QUADS- LAST BM REPORTED 04/25/18- TRIPLE LUMEN PICC NOTED TO RIGHT JUGULAR, INTACT WITHOUT S/S INFECTION-SCHEDULED ALBUMIN GIVEN PRESCIBED THIS AM- ALL PORTS ASPIRATED FOR BLOOD POSITIVE- PT CURRENTLY NPO FOR PLANNED PARACENTHESIS THIS AM- PT DENIES ANY C/O PAIN/DISCOMFORT AT THIS TIME- CALL LIGHT AND PERSONAL BELONGINGS WITH IN REACH- HOURLY ROUNDS IN PLACE R/T SAFETY/NEEDS- ALL NEEDS MET AT THIS TIME-WCTM
[2018-04-26 10:14] LABS: INR 1.2; PROTIME 12.1 Seconds (9.20-11.50)
[2018-04-26 12:06] VITALS: BP 104/66
[2018-04-26 15:55] VITALS: BP 91/43
--- NOTE | 2018-04-26 18:07 | NUR ---
PT HOWIE RESTING IN BED, WATCHING TV- AT SIDE VISITING- BARBER SHOP OPERATOR IN PLACE ORDERED, TRACING ST- RIGHT JUGULAR TRIPLE LUMEN PICC IN PLACE- ALBUMIN GIVEN THIS SHIFT PRESCIBED- PARACENTESIS POSTPONED TILL SATURDAY- CARDIO SIGNED OFF THIS SHIFT- HYDROCODONE GIVEN X1 THIS SHIFT AT 1503 FOR BACK PAIN- PT REPORTS MEDICATION TO BE EFFECTIVE- GOOD PO INTAKE NOTED THIS SHIFT- BS MONITORED WITH SSI GIVEN PRESCIBED- PT UP WALKING IN ROOM, TOLERATING WELL- ALL NEEDS MET AT THIS TIME-WCTM
[2018-04-26 19:10] VITALS: BP 94/62
[2018-04-27] VITALS (8 sets, daily range): BP systolic 88–109; BP diastolic 49–71
--- NOTE | 2018-04-27 05:11 | NUR ---
ASSUMED CARE ATE 2350, I AGREES WITH PREVIOUS NURSE ASSESSMENT.
--- NOTE | 2018-04-27 10:24 | NUR ---
ASSUMED CARE OF PT THIS AM AROUND 0715- METALSMITH HELPER IN PLACE ORDERED, TRACING ST- UPON ASSESSMENT PT NOTED TO BE RESTING IN BED, AT SIDE- PT A&O X4- CONTINENT OF BOWEL AND BLADDER- UP AD-MERARI IN ROOM, STEADY GAIT NOTED-LCTA, RESP EVEN AND [id number], O2 SAT 94% ON RA- ABDOMEN FIRM/ROUND/DISTENDED, BS X4 QUADS- LAST BM REPORTED X2 DAYS AGO- RIGHT TRIPLE LUMEN PICC NOTED, C/D/I WITH NO S/S INFECTION- GOOD PO INTAKE NOTED THIS AM WITH BREAKFAST, BS MONITORED ORDERED, SSI PRESCIBED- PT C/O PAIN 01/21 TO NECK, PRN OXY GIVEN AT 0942- CALL LIGHT AND PERSONAL BELONGINGS WITH IN REACH- HOURLY ROUNDS IN PLACE R/T SAFETY/NEEDS- ALL NEEDS MET AT THIS TIME-WCTM
--- NOTE | 2018-04-27 16:36 | NUR ---
PT VERONICAENLTY RESTING IN BED, WATCHING TV- AT SIDE VISITING- RIGHT TRIPLE LUMEN PICC NOTED INTACT, DRESSING CHANGED PER THIS NURSE THIS SHIFT R/T EDGES NOTED TO BE FOLDING UP- GOOD PO INTAKE NOTED THIS SHIFT WITH MEALS, BS MONITORED WITH SSL INSULIN PRESCIBED-ORTHO STATS OBTAINED AND IN [place] REQUESTED FOR VIEWING THIS SHIFT- PT TO BE NPO AT MIDNIGHT FOR PLANNED PARACENTSIS IN AM- PT MAKES NEEDS KNOWN- ALL NEEDS MET AT THIS TIME-WCTM
[2018-04-28] VITALS: BP 100/65
[2018-04-28 04:00] VITALS: BP 87/58
--- NOTE | 2018-04-28 04:59 | NUR ---
PT AAOX4 RESP REG AND UNALBORED SKIN W/D NO ACUTE DISTRESS NOTED.ABDOMEN DISTENDED AND FIRM. PT NPO FOR PARANCENTSIS THIS AM. TELEMETRY PACK INTACT WITH ALARMS SET. AT BEDSIDE. VSS AND NO ACUTE DISTRESS NOTED. PT STATES HE IS SUPPOSE TO GO HOME AFTER PROCEDURE. PT DENIES CHEST PAIN, SOB AND PAIN AT THIS TIME. WILL CONTIUE TO MONITOR,
--- NOTE | 2018-04-28 09:49 | NUR ---
RESUME ORDERS FOR P.T. REQUESTED. PATIENT AWAY FROM ROOM HAVING A PARACENTESIS. WILL ATTEMPT P.T. EVALUATION LATER THIS DATE.
--- NOTE | 2018-04-28 11:22 | CON ---
[address] [address] CONSULTATION Name: JAMIE MONET JR Room: [address] IN .R.#: [id number] Admission: 04/18/18 Attend Phys: Champ Giraldo MD Discharge: Date of : 60 Report #: [id number] THIS REPORT FOR: //name// CC: Champ Boo DATE OF SERVICE: 04/19/2018 HISTORY OF PRESENT ILLNESS: This is a pleasant 57-year-old gentleman with past medical history significant for cirrhosis complicated by ascites and varices who was admitted to the hospital following a low blood pressure following large volume paracentesis. The patient was diagnosed with cirrhosis in November 2017 when he presented with ascites. At that time, biopsy revealed steatohepatitis as a predominant cause of his cirrhosis. The patient is on spironolactone and Lasix as outpatient and reports that he does take medications as prescribed. However, he does have to have intermittent episodes of large volume paracentesis to relieve the abdominal pressure. The patient had 9 liters removed and did not receive any albumin replacement and subsequently developed hypotension. The patient denies any significant abdominal pain, nausea, vomiting, fevers, chills or dizziness. The patient does not report any recent episodes of confusion, hematemesis or melena. PAST MEDICAL HISTORY: As mentioned above. The patient has a past medical history significant for diabetes, hypertension, obesity and cirrhosis. PAST SURGICAL HISTORY: Nonsignificant. SOCIAL HISTORY: The patient currently smokes 1/2 pack a day. Denies any alcohol or recreational drug use. FAMILY HISTORY: No family history of colorectal cancer. REVIEW OF SYSTEMS: A comprehensive 10-point review of systems is negative except for what was mentioned here. PHYSICAL EXAMINATION: VITAL SIGNS: The patient's pulse rate is 105, respirations 16, blood pressure 115/72, pulse oximetry 100% on room air. GENERAL: The patient is alert, awake, oriented x 3. HEENT: Mucous membranes are moist. There is no congestion. Pupils are equal, round, reactive to light and accommodation. There is no scleral icterus. NECK: There is no supraclavicular lymphadenopathy. LUNGS: Clear to auscultation bilaterally. CARDIOVASCULAR: Rate and rhythm regular. S1, S2 present. ABDOMEN: Soft, distended. Fluid thrill is present. EXTREMITIES: Bilateral pitting edema. [place] [address] CONSULTATION Name: JAMIE MONET JR Room: [address]#: [id number] Admission: 04/18/18 Attend Phys: Champ Giraldo MD Discharge: Date of : 60 Report #: [id number] NEUROLOGIC: No focal neurological deficit. SKIN: No icterus noted. LABORATORY DATA: Hemoglobin 8.4, hematocrit 26.8, platelet count 287, WBC count 10.4. Sodium 132, potassium 3.7, chloride 97, bicarbonate 27, BUN 12, creatinine 1.1, AST 120, ALT 26, alkaline phosphatase 236. Ammonia level 334. Troponin 21. Albumin 2.2. CT abdomen and pelvis, apparent mural thickening and inflammation of the third portion of duodenum suggesting nonspecific duodenitis, likely infectious versus inflammatory, cirrhotic liver morphology with 3.3 cm right hepatic lesion that was biopsied. Findings consistent with portal hypertension including large volume ascites and varices. ASSESSMENT AND PLAN: This is a very pleasant 57-year-old male, with past medical history significant for hypertension, diabetes, cirrhosis complicated by ascites and varices, who is presenting for hypotension and chest pain following paracentesis. The patient was found to have elevated troponin and is going to undergo cardiac catheterization on Saturday. Hypotension. I have stopped the patient's nonselective beta tracy, propranolol at this time. I have also stopped his Lasix and spironolactone. The patient is on a small dose of Levophed. He received albumin 25 g. I would recommend giving him another 50 g if his blood pressure does not improve in the next couple of hours. Due to his resistant ascites, I would recommend stopping propranolol use assisted for management of his varices. These have to be managed endoscopically with banding as appropriate. He will need a repeat EGD in 6 months' time to evaluate the progression of varices. He does not have any evidence of hepatic encephalopathy at this time. <ELECTRONICALLY SIGNED> By: Carlos Fam MD 04/28/18 [id number] Fam MD /nt
--- NOTE | 2018-04-28 11:28 | NUR ---
DAY CARE WORKER SPOKE TO THE PATIENT TO DISCUSS DISCHARGE PLANNING NEEDS. PATIENT INFORMS THAT HE DOES NOT HAVE ANY D/C PLANNING NEEDS AND HIS WILL PROVIDE TRANSPORT. CM WILL REMAIN AVAILABLE TO ASSIST AND FOLLOW NEEDED.
[2018-04-28] MEDS ORDERED: BRILINTA90 MG PO (13:10)
[2018-04-28] MEDS ORDERED: MIDODRINE HCL 55 M1 PO (13:13)
[2018-04-28 13:22] VITALS: BP 94/63
[2018-04-28 13:27] VITALS: BP 86/55
--- NOTE | 2018-04-28 16:15 | NUR ---
ORDER RECEIVED TO DISCHARGE PATIENT HOME TO CARE WITH SPOUSE. MED REC, MEDICATION EDUCATION, STROKE EDUCATION, AND NEED FOR FOLLOW UP APPOINTMENTS COVERED WITH PATINET AND STATED UNDERSTOOD. DISCUSSION WAS HAD WITH CARDIOLOGY ACTIVITY AIDE REGARDING REASON FOR NOT BETA TIP (LOW BLOOD PRESSURE BEING TREATED WITH SUPPORTIVE MEASUREOF MIDODRINE), NO STATINS (PATINET HAS CIRRHOSIS OF THE LIVER), AND NO IVA INHIBITOR (EF OF 60%). TRIPLE LUMEN IJH REMOVED FORM RIGHT JUGULAR. TELEMTRY PACK REMOVED. PATINET TRANSPORTED VIA WHEELCHAIR TO AWAITING CAR WITH SPOUSE PRESENT. DC TIME OF 15:50. FOLLOW UP APPOINTMENTS WITH CARDIOLOGY MADE PRIOR TO DISCHARGE. HOURLY ROUNDING COMPLETED FOR PATINET SAFETY AND PATIENT HAD PREOGRESSED TOWARDS GOALS.
--- NOTE | 2018-05-23 14:59 | PATH ---
[address] [address] PATHOLOGY RPT PROCEDURE Name: JAMIE MONET Room: [address]#: [id number] Admission: 04/18/18 Date of : 60 Discharge: 04/28/18 Report #: [id number] Path Case #: [id number] Note [facility] Accession Number: [id number] TESTS RESULT FLAG UNITS REF RANGE LAB Clinician Provided Cytology Information No. of containers..01 Other (Miscellaneous) Source: ASCITES DIAGNOSIS: 02 ASCITES NEGATIVE FOR MALIGNANT CELLS. THIS INTERPRETATION INCLUDES EVALUATION OF A CELL BLOCK. Signed out by: 02 Matt Beyer MD, Pathologist NPI- [id number] Performed by: 01 [place], Thread Laster ([facility]) Gross description: 01 80 ML, YELLOW, CLOUDY /LCS FLAG LEGEND: L-Low Normal,H-High Normal,LL-Alert Low,HH-Alert High <-Panic Low,>-Panic High,A-Abnormal,AA-Critical Abnormal Performed at: [address] [place] [address] Tu Chavez MD, [address] [place] [address] [address] [facility], [place] [address] Jass Bhat MD, Performed at: [address], [place], [place] [id number] MD Tu Chavez MD Phone: [phone]
== END 2018-04-28 15:49 | disposition home or self-care (01) | DRG 248 ==
LOC: M.ERS 20:08 → M.TBA-ER 22:25 → M.ICU 22:50 → M.TBA-ER 22:50 → M.ICU 23:31 → M.2W 04-22 14:22 → M.TBA 04-23 13:12 → M.2W 04-23 13:12 → M.ICU 04-24 15:00 → M.2W 04-25 11:15
PROVIDERS: Emergency Medicine; Internal Medicine; Internal Medicine Cardiovascular Disease; ADMIT Internal Medicine
PROC: 02HV33Z Insertion of Infusion Device into Superior Vena Cava, Percutaneous Approach (ICD-10-PCS; principal; 2018-04-19)
PROC: 0W9G3ZZ Drainage of Peritoneal Cavity, Percutaneous Approach (ICD-10-PCS; principal; 2018-04-19)
PROC: B548ZZA Ultrasonography of Superior Vena Cava, Guidance (ICD-10-PCS; principal; 2018-04-19)
PROC: BW40ZZZ Ultrasonography of Abdomen (ICD-10-PCS; principal; 2018-04-19)
PROC: 4A023N7 Measurement of Cardiac Sampling and Pressure, Left Heart, Percutaneous Approach (ICD-10-PCS; 2018-04-21)
PROC: 30233N1 Transfusion of Nonautologous Red Blood Cells into Peripheral Vein, Percutaneous Approach (ICD-10-PCS; 2018-04-21)
PROC: B2111ZZ Fluoroscopy of Multiple Coronary Arteries using Low Osmolar Contrast (ICD-10-PCS; 2018-04-21)
PROC: 0W9G3ZZ Drainage of Peritoneal Cavity, Percutaneous Approach (ICD-10-PCS; 2018-04-21)
PROC: 02713FZ Dilation of Coronary Artery, Two Arteries with Three Intraluminal Devices, Percutaneous Approach (ICD-10-PCS; 2018-04-21)
PROC: BW40ZZZ Ultrasonography of Abdomen (ICD-10-PCS; 2018-04-21)
PROC: 02703DZ Dilation of Coronary Artery, One Artery with Intraluminal Device, Percutaneous Approach (ICD-10-PCS; 2018-04-24)
PROC: B2151ZZ Fluoroscopy of Left Heart using Low Osmolar Contrast (ICD-10-PCS; 2018-04-24)
PROC: 4A023N7 Measurement of Cardiac Sampling and Pressure, Left Heart, Percutaneous Approach (ICD-10-PCS; 2018-04-24)
PROC: B2111ZZ Fluoroscopy of Multiple Coronary Arteries using Low Osmolar Contrast (ICD-10-PCS; 2018-04-24)
PROC: BW40ZZZ Ultrasonography of Abdomen (ICD-10-PCS; 2018-04-28)
PROC: 0W9G3ZZ Drainage of Peritoneal Cavity, Percutaneous Approach (ICD-10-PCS; 2018-04-28)
DX: I21.29 ST elevation (STEMI) myocardial infarction involving other sites (principal); E43 Unspecified severe protein-calorie malnutrition; J96.00 Acute respiratory failure, unspecified whether with hypoxia or hypercapnia; R57.9 Shock, unspecified; R18.8 Other ascites; E87.1 Hypo-osmolality and hyponatremia; T82.855A Stenosis of coronary artery stent, initial encounter; K72.90 Hepatic failure, unspecified without coma; I25.110 Atherosclerotic heart disease of native coronary artery with unstable angina pectoris; K74.60 Unspecified cirrhosis of liver; E11.9 Type 2 diabetes mellitus without complications; M06.9 Rheumatoid arthritis, unspecified; K21.9 Gastro-esophageal reflux disease without esophagitis; I10 Essential (primary) hypertension; E78.00 Pure hypercholesterolemia, unspecified; F17.210 Nicotine dependence, cigarettes, uncomplicated; E66.9 Obesity, unspecified; I83.90 Asymptomatic varicose veins of unspecified lower extremity; D64.9 Anemia, unspecified; E78.5 Hyperlipidemia, unspecified; Y83.8 Other surgical procedures as the cause of abnormal reaction of the patient, or of later complication, without mention of misadventure at the time of the procedure; Z68.33 Body mass index [BMI] 33.0-33.9, adult; Z88.6 Allergy status to analgesic agent; Z79.01 Long term (current) use of anticoagulants; Z79.82 Long term (current) use of aspirin; Z79.899 Other long term (current) drug therapy; Y92.89 Other specified places as the place of occurrence of the external cause